=== PATIENT | male | born 1960 | race African-American/Black ===

== ENCOUNTER 2019-08-16 17:18 | Observation (INO) ==
[2019-08-16] MEDS ORDERED: cefTRIAXone 1,000 MG in SODIUM CHLORIDE 0.9% 100 ML IV STA (18:21)
[2019-08-16 18:57] LABS: Basophils # 0.1 10*3/uL (0.0-0.2); Basophils % 0.4 % (0.0-0.8); Eosinophils % 0.1 % (0.00-10.9); Hematocrit 45.7 VOL% (42.0-52.0); Hemoglobin 15.1 GM/DL (14.0-18.0); Immature Granulocytes % 0.6 %; Immature Granulocytes Absolute 0.08 #; Lymphocytes # 1.3 10*3/uL (1.4-4.0); Lymphocytes % 9.1 % (21.2-54.2); Mean Platelet Volume 8.9 FL (9.6-12.0); Neutrophils % 77.8 % (38.7-73.9); Platelet Count 236 T/CUMM (130-400); Red Blood Count 4.81 MC/CUMM (3.8-5.5); Red Cell Distribution Width 13.2 % (9.3-17.3); White Blood Count 14.1 T/CUMM (4-12)
[2019-08-16 19:06] LABS: INR 1.1; PT Patient Result 11.5 SECS (9.6-12.2)
[2019-08-16 19:12] LABS: Albumin 2.8 G/DL (3.4-5.0); Calcium 8.4 MG/DL (8.5-10.1); Osmolality,Calculated 268.1 MOS/KG (273-304); Total Protein 7.5 G/DL (6.4-8.3)
[2019-08-16] MEDS ORDERED: ACETAMINOPHEN 325 MG TABLET PO PRN (20:02)
[2019-08-16] MEDS ORDERED: ONDANSETRON 4 MG/2 ML VIAL IV PRN (20:02)
[2019-08-16] MEDS: DEXTROSE 5% NACL 0.45% 1,000 ML IV SCH (23:09)
[2019-08-16 23:56] LABS: Apearance,Urine CLEAR (Clear); Bilirubin,Urine Negative (Negative); Blood, Urine Moderate mg/dL (Negative); Glucose,Urine (UA) 50 mg/dL (Negative); Hyaline Casts,Urine 1 /LPF (0-3); Ketones,Urine 5 mg/dL (Negative); Mucus,Urine Few /LPF (Occasional); Nitrite,Urine Negative (Negative); Protein,Urine 30 MG/DL; RBC,Urine 4 /HPF (0-4); Squamous Epithelial Cell,Urine Occasional /HPF (0-10); Urine Color Amber (Yellow); Urine Specific Gravity > 1.060 (1.001-1.035); Urine Urobilinogen < 2.0 EU/DL (0.2-1.0); WBC,Urine 2 /HPF (0-6)
[2019-08-17] MEDS: DEXTROSE 5% NACL 0.45% 1,000 ML IV SCH ×2 (06:37→11:48)
[2019-08-17] MEDS: PANTOPRAZOLE 40 MG TABLET PO SCH (08:35)
[2019-08-17] MEDS: PIPERACILLIN/TAZOBACTAM 3,375 MG in SODIUM CHLORIDE 0.9% 100 ML IV SCH ×2 (09:34→16:55)
[2019-08-17 11:28] LABS: Basophils # 0.1 10*3/uL (0.0-0.2); Basophils % 0.5 % (0.0-0.8); Eosinophils # 0.3 10*3/uL (0.0-0.87); Eosinophils % 2.9 % (0.00-10.9); Hematocrit 45.1 VOL% (42.0-52.0); Hemoglobin 14.9 GM/DL (14.0-18.0); Immature Granulocytes % 0.5 %; Immature Granulocytes Absolute 0.06 #; Lymphocytes # 1.2 10*3/uL (1.4-4.0); Lymphocytes % 10.7 % (21.2-54.2); Mean Platelet Volume 8.5 FL (9.6-12.0); Monocytes % 10.1 % (1.7-12.7); Neutrophils % 75.3 % (38.7-73.9); Platelet Count 204 T/CUMM (130-400); Red Cell Distribution Width 13.1 % (9.3-17.3)
[2019-08-17 12:10] LABS: Albumin 2.6 G/DL (3.4-5.0); Calcium 8.3 MG/DL (8.5-10.1); Osmolality,Calculated 263.4 MOS/KG (273-304); Total Protein 7.3 G/DL (6.4-8.3)
[2019-08-17] MEDS: ENOXAPARIN 40 MG/0.4 ML SYRINGE SUBCUT SCH (14:06)
[2019-08-18] MEDS: PIPERACILLIN/TAZOBACTAM 3,375 MG in SODIUM CHLORIDE 0.9% 100 ML IV SCH ×3 (01:39→16:48)
[2019-08-18] MEDS ORDERED: cefOXitin 2,000 MG in SYRINGE 1 EACH IV ONE (06:00)
[2019-08-18] MEDS ORDERED: INDOCYANINE GREEN 25 MG VIAL IV ONE (06:30)
[2019-08-18 06:40] LABS: Basophils # 0.1 10*3/uL (0.0-0.2); Basophils % 0.6 % (0.0-0.8); Eosinophils # 0.6 10*3/uL (0.0-0.87); Eosinophils % 6.8 % (0.00-10.9); Hemoglobin 14.7 GM/DL (14.0-18.0); Immature Granulocytes % 0.6 %; Immature Granulocytes Absolute 0.05 #; Lymphocytes # 1.4 10*3/uL (1.4-4.0); Lymphocytes % 16.4 % (21.2-54.2); Mean Corpuscular HGB Conc 32.7 GM/DL (32-36); Mean Corpuscular Volume 97.4 FL (87-102); Mean Platelet Volume 9.4 FL (9.6-12.0); Monocytes % 9.2 % (1.7-12.7); Neutrophils % 66.4 % (38.7-73.9); Platelet Count 215 T/CUMM (130-400); Red Blood Count 4.62 MC/CUMM (3.8-5.5); Red Cell Distribution Width 12.9 % (9.3-17.3); White Blood Count 8.8 T/CUMM (4-12)
[2019-08-18 06:58] LABS: Albumin 2.8 G/DL (3.4-5.0); Bilirubin,Total 1.1 MG/DL (0.2-1.0); Calcium 8.9 MG/DL (8.5-10.1); Osmolality,Calculated 266.2 MOS/KG (273-304); Total Protein 7.9 G/DL (6.4-8.3)
[2019-08-18] MEDS: PANTOPRAZOLE 40 MG TABLET PO SCH (08:29)
[2019-08-18] MEDS: DEXTROSE 5% NACL 0.45% 1,000 ML IV SCH ×4 (10:40→20:02)
[2019-08-18] MEDS ORDERED: LIDOCAINE 1%/EPI INJ 20 ML VIAL ONE (11:09)
[2019-08-18] MEDS ORDERED: BUPIVACAINE MPF 0.25% 30 ML VIAL ONE (11:09)
[2019-08-18] MEDS ORDERED: TISSUE ADHESIVE 1 EACH APPLICATOR TOP ONE (11:09)
[2019-08-18] MEDS ORDERED: LABETALOL 100 MG/20 ML VIAL IV ONE (13:12)
[2019-08-18] MEDS ORDERED: propofoL 200 MG/20 ML VIAL IV ONE (14:08)
[2019-08-18] MEDS ORDERED: fentaNYL 100 MCG/2 ML VIAL ONE (14:09)
[2019-08-18] MEDS ORDERED: DEXAMETHASONE 4 MG/1 ML VIAL ONE (14:09)
[2019-08-18] MEDS ORDERED: MIDAZOLAM 2 MG/2 ML VIAL ONE (14:09)
[2019-08-18] MEDS ORDERED: LIDOCAINE 2% 5 ML VIAL ONE (14:09)
[2019-08-18] MEDS ORDERED: ONDANSETRON 4 MG/2 ML VIAL ONE (14:09)
[2019-08-18] MEDS ORDERED: DESFLURANE 1 UNIT/15 MINUTE INH ONE (14:09)
[2019-08-18] MEDS ORDERED: SUCCINYLCHOLINE 200 MG/10 ML VIAL ONE (14:10)
[2019-08-18] MEDS ORDERED: ROCURONIUM 100 MG/10 ML VIAL IV ONE (14:10)
[2019-08-18] MEDS ORDERED: LACTATED RINGERS 1,000 ML IV ONE (14:10)
[2019-08-18] MEDS: ENOXAPARIN 40 MG/0.4 ML SYRINGE SUBCUT SCH (15:54)
[2019-08-18] MEDS: MORPHINE 4 MG/1 ML VIAL IV PRN (17:15)
[2019-08-19] MEDS: PIPERACILLIN/TAZOBACTAM 3,375 MG in SODIUM CHLORIDE 0.9% 100 ML IV SCH ×3 (01:50→16:46)
[2019-08-19] MEDS: DEXTROSE 5% NACL 0.45% 1,000 ML IV SCH (04:20)
[2019-08-19] MEDS: MORPHINE 4 MG/1 ML VIAL IV PRN ×2 (04:50→16:50)
[2019-08-19] MEDS: PANTOPRAZOLE 40 MG TABLET PO SCH (08:54)
[2019-08-19 09:25] LABS: Basophils % 0.1 % (0.0-0.8); Eosinophils % 0.1 % (0.00-10.9); Hematocrit 40.9 VOL% (42.0-52.0); Hemoglobin 13.7 GM/DL (14.0-18.0); Immature Granulocytes % 0.4 %; Immature Granulocytes Absolute 0.04 #; Lymphocytes # 0.9 10*3/uL (1.4-4.0); Lymphocytes % 8.7 % (21.2-54.2); Mean Corpuscular HGB Conc 33.5 GM/DL (32-36); Mean Corpuscular Volume 95.6 FL (87-102); Mean Platelet Volume 8.6 FL (9.6-12.0); Monocytes % 7.6 % (1.7-12.7); Neutrophils % 83.1 % (38.7-73.9); Platelet Count 256 T/CUMM (130-400); Red Blood Count 4.28 MC/CUMM (3.8-5.5); Red Cell Distribution Width 12.7 % (9.3-17.3); White Blood Count 10.2 T/CUMM (4-12)
[2019-08-19 09:52] LABS: Albumin 2.4 G/DL (3.4-5.0); Bilirubin,Total 0.5 MG/DL (0.2-1.0); Calcium 8.7 MG/DL (8.5-10.1); Osmolality,Calculated 265.2 MOS/KG (273-304); Total Protein 7.2 G/DL (6.4-8.3)
[2019-08-19] MEDS: ENOXAPARIN 40 MG/0.4 ML SYRINGE SUBCUT SCH (12:10)
[2019-08-20] MEDS: PIPERACILLIN/TAZOBACTAM 3,375 MG in SODIUM CHLORIDE 0.9% 100 ML IV SCH ×3 (01:15→17:00)
[2019-08-20 04:54] LABS: Basophils % 0.4 % (0.0-0.8); Eosinophils # 0.2 10*3/uL (0.0-0.87); Hematocrit 39.3 VOL% (42.0-52.0); Immature Granulocytes % 0.5 %; Immature Granulocytes Absolute 0.04 #; Lymphocytes # 1.7 10*3/uL (1.4-4.0); Lymphocytes % 21.5 % (21.2-54.2); Mean Corpuscular HGB Conc 33.1 GM/DL (32-36); Mean Corpuscular Volume 95.4 FL (87-102); Mean Platelet Volume 8.4 FL (9.6-12.0); Monocytes % 8.4 % (1.7-12.7); Neutrophils % 66.2 % (38.7-73.9); Platelet Count 265 T/CUMM (130-400); Red Blood Count 4.12 MC/CUMM (3.8-5.5); Red Cell Distribution Width 12.6 % (9.3-17.3); White Blood Count 7.8 T/CUMM (4-12)
[2019-08-20 05:15] LABS: Albumin 2.2 G/DL (3.4-5.0); Bilirubin,Total 0.6 MG/DL (0.2-1.0); Calcium 8.8 MG/DL (8.5-10.1); Osmolality,Calculated 264.4 MOS/KG (273-304); Total Protein 6.5 G/DL (6.4-8.3)
[2019-08-20] MEDS: MORPHINE 4 MG/1 ML VIAL IV PRN (05:45)
[2019-08-20] MEDS ORDERED: MAGNESIUM HYDROXIDE SUSP 30 ML UDCUP PO ONE (07:57)
[2019-08-20] MEDS: PANTOPRAZOLE 40 MG TABLET PO SCH (08:44)
[2019-08-20] MEDS: ENOXAPARIN 40 MG/0.4 ML SYRINGE SUBCUT SCH (13:10)
[2019-08-20 16:31] VITALS: BP 170/112
== END 2019-08-20 18:10 | disposition home or self-care (01) ==
LOC: EDBD → EDUNIT# → N.ED 17:18 → INTOOBSV 18:27 → N.EDINP 18:27 → N.5E 19:12 → N.3E 08-18 13:48
PROVIDERS: ADMIT Surgery; ATTEND Surgery